=== PATIENT | female | born 1965 ===

== ENCOUNTER 2018-09-05 22:06 | Emergency (ER) | payer MEDICAID ==
[2018-09-05 22:09] VITALS: RESP 18; O2SAT 99; BMI 24.1
[2018-09-05] MEDS ORDERED: Naproxen 500 MG TAB PO ONE ×2 (22:23→23:03)
--- NOTE | 2018-09-05 22:26 | ED PDOC ---
Upper Extremity Pain/Injury Time Seen by Provider: 09/05/18 22:20 Chief Complaint (Nursing): Finger,Hand,&Wrist History Per: Patient Additional Complaint(s): Pt. states earlier today she was hitting a door to get it open and injured her R hand doing so. Denies numbness, tingling, other injury. Past Medical History Reviewed: Historical Data, Nursing Documentation, Vital Signs Vital Signs: Last Vital Signs Temp 97.4 F L 09/05/18 22:14 Pulse 70 09/05/18 22:14 Resp 18 09/05/18 22:14 BP 129/68 09/05/18 22:14 Pulse Ox 99 09/05/18 22:14 Primary Care Provider: FAMILY PROVIDER,NO - Medical History PMH: HTN Denies: Diverticulitis, Hyperthyroidism, Pulmonary Embolism - Surgical History Surgical History: Denies: Appendectomy - Family History Family History: States: No Known Family Hx - Immunization History Hx Tetanus Toxoid Vaccination: No Hx Influenza Vaccination: No Hx Pneumococcal Vaccination: No - Home Medications Home Medications: Ambulatory Orders Medication Instructions Recorded Acetaminophen [Tylenol Extra 2 tab PO Q6 PRN #30 tablet 04/13/17 Strength] Guaifenesin/Dextromethorphan 1 tab PO BID PRN #14 tab.er.12h 04/13/17 [Mucinex Dm ER 1,200-60 mg Tab] Oxymetazoline 0.05% [Oxymetazoline 2 sprays NS BID #1 bottle 04/13/17 HCl 30 Ml] Nitrofurantoin Macrocrystals 100 mg PO BID #14 cap 06/03/17 [Macrobid] Phenazopyridine HCl [Pyridium] 200 mg PO TID #6 tablet 06/03/17 Acetaminophen with Codeine 1 each PO Q4 PRN #8 tablet 09/05/18 [Tylenol with Codeine #3 Tablet] - Allergies Allergies/Adverse Reactions: Allergies Allergy/AdvReac Type Severity Reaction Status Date / Time No Known Allergies Allergy Verified 02/02/18 07:34 Review of Systems ROS Statement: Except As Marked, All Systems Reviewed And Found Negative Musculoskeletal: Positive for: Hand Pain Physical Exam - Physical Exam Appears: Positive for: Well, Non-toxic, No Acute Distress Skin: Positive for: Normal Color, Warm. Negative for: Rash Eye Exam: Positive for: Normal appearance Pulses-Radial (L): 2+ Pulses-Radial (R): 2+ Extremity: Positive for: Other (R 4th MCP tenderness and swelling on dorsum without deformity or break in skin integrity) Neurological/Psych: Positive for: Awake, Alert, Oriented (x3). Negative for: Motor/Sensory Deficits (to R hand) - ECG O2 Sat by Pulse Oximetry: 99 - Radiology X-Ray: Interpreted by Me (R hand x-ray) X-Ray Interpretation: Other (non-displaced distal 4th MCP fx) - Progress ED Course And Treament: Naproxen 500mg PO, R hand x-ray ordered. Pt. searched on [place] aware. Last prescribed gabapentin #90 and Tylenol #3 #15 on 07/05/18. Pt. will be prescribed Tylenol #3 for break through pain if Ibuprofen does not provide analgesia. Patient also verbally counseled on appropriate use of opioids including risks and safety plan. Informed that ortho consult is necessary but pt. refused to wait. States she is a [facility] patient and prefers to f/u with them first and go through one of their ortho. Encouraged to wait for ortho consult but still refused. Advised to follow up with [facility] tomorrow for further evaluation. Procedures - Time-Out Type of Procedure: Splint placement Site of Procedure: R hand Correct Patient: Yes Correct Procedure: Yes Correct Site Marked: Yes X-Ray Marked: Yes PA/Tech: Arabella CASTRO - Splinting Location: R hand Hand-Made Type: orthoglass Splint: ulnar Pre-Proc Neuro Vasc Exam: normal Post-Proc Neuro Vasc Exam: normal Disposition - Clinical Impression Clinical Impression: Fracture of fourth metacarpal bone of right hand - Patient ED Disposition Is Patient to be Admitted: No - Disposition Referrals: [facility] at [Outside] [facility] [place] [Outside] Ayush Dotson MD [Staff Provider] - Disposition: Routine/Home Disposition Time: 23:05 Condition: STABLE Additional Instructions: FOLLOW UP WITH ORTHOPEDIST FOR FURTHER EVALUATION RETURN TO ED IMMEDIATELY IF SYMPTOMS WORSEN [place] NELSON, thank you for letting us take care of you today. Your provider was Josr Cervantes MD and you were treated for RIGHT HAND INJURY. The emergency medical care you received today was directed at your acute symptoms. If you were prescribed any medication, please fill it and take as directed. It may take several days for your symptoms to resolve. Return to the Emergency Department if your symptoms worsen, do not improve, or if you have any other problems. Please contact your doctor or call one of the physicians/clinics you have been referred to that are listed on the Patient Visit Information form that is included in your discharge packet. Bring any paperwork you were given at discharge with you along with any medications you are taking to your follow up visit. Our treatment cannot replace ongoing medical care by a primary care provider outside of the emergency department. Thank you for allowing the [facility] team to be part of your care today. If you had an X-Ray or CT scan: A Radiologist will review the ED reading if any change in treatment is needed we will contact you. If you had a blood, urine, or wound culture: It will take several days for the results, if any change in treatment is needed we will contact you. If you had an STI test: It will take 48 hours for the results. Please call after 1 week if you have not heard back. Prescriptions: Acetaminophen with Codeine [Tylenol with Codeine #3 Tablet] 1 each PO Q4 PRN #8 tablet PRN Reason: Pain Instructions: Hand Fracture (DC), Opioids for Short-Term Treatment of Pain, Taking Narcotics Safely Forms: [employer] (Slovak), [facility] ED School/Work Excuse Print Language: LUX[place]BOURGISH
[2018-09-05 23:39] VITALS: BP 136/74; PULSE 76; TEMP 97.8
--- NOTE | 2018-09-06 08:46 | RAD ---
PROCEDURE: Right Hand Radiographs. HISTORY: trauma COMPARISON: None. TECHNIQUE: 3 views obtained. FINDINGS: BONES: Active fracture distal metaphysis right 4th metacarpal bone. Mild volar angulation of the major distal fracture fragment suggested. No dislocation or subluxation. No additional fracture identified throughout the remaining bony elements of the right hand. JOINTS: Normal. No osteoarthritic changes. SOFT TISSUES: Normal. OTHER FINDINGS: None. IMPRESSION: Boxer's fracture right 4th metacarpal bone impaction and likely volar angulation of the major distal fracture fragment. No dislocation. PA review assigned.
== END 2018-09-05 23:15 | disposition home or self-care (01) ==
LOC: H.ER 22:06
DX: S62.304A Unspecified fracture of fourth metacarpal bone, right hand, initial encounter for closed fracture (principal); W22.8XXA Striking against or struck by other objects, initial encounter; I10 Essential (primary) hypertension